=== PATIENT | female | born 1945 | race Two or more races ===

== ENCOUNTER 2019-08-21 16:40 | Emergency (ER) | payer MEDICARE, OTHER ==
[~2019-08-21] VITALS: Ht 162.6 cm; Wt 74.4 kg
[2019-08-21 16:53] VITALS: BP 159/67
== END 2019-08-21 18:08 | disposition home or self-care (01) ==
LOC: ER 16:40
DX: J20.9 Acute bronchitis, unspecified (principal); E11.9 Type 2 diabetes mellitus without complications; I10 Essential (primary) hypertension
CPT/HCPCS: 71046